=== PATIENT | female | born 1960 | race Caucasian/White ===

== ENCOUNTER 2025-04-03 17:03 | Emergency (ER) | payer MEDICARE, SELFPAY ==
[2025-04-03 17:08] VITALS: BP 166/82; PULSE 72; RESP 18; TEMP 36.7; O2SAT 100; BMI 28.0
--- NOTE | 2025-04-03 17:32 | XRR_ITS ---
PROCEDURE INFORMATION: Exam: XR Chest Exam date and time: 04/03/2025 5:38 PM Age: 65 years old Clinical indication: Pain; Chest pressure; Additional info: Chest pain TECHNIQUE: Imaging protocol: Radiologic exam of the chest. Views: 1 view. COMPARISON: No relevant prior studies available. FINDINGS: Lungs: Unremarkable. No consolidation. Pleural spaces: Unremarkable. No pleural effusion. No pneumothorax. Heart/Mediastinum: Unremarkable. No cardiomegaly. Bones/joints: Unremarkable. XR/XR chest 1V portable [id number] IMPRESSION: No acute findings.
--- NOTE | 2025-04-03 17:32 | ECG_ITS ---
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 Measurements Intervals [place] Rate: 75 P: 64 [place]: 141 QRS: 74 QRSD: 72 T: 45 QT: 357 QTc: 399 Interpretive Statements SINUS RHYTHM No previous ECG available for comparison Electronically Signed On 04-04-2025 14:33:36 CDT by Flaquito Oconnell M.D. [email or web address]
--- NOTE | 2025-04-03 17:34 | ED_ITS ---
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 This has been on and off for the last 2 months. This was in the central area of her chest, sharp, radiating to her right shoulder and feeling like a squeeze. Last p.m. she had the same pain, and it was radiating to her left shoulder. This occurred prior to arrival as well with the squeezing sensation/radiation to left shoulder. It is associated with shortness of breath. No diaphoresis, no nausea, no vomiting. No previous history of CAD. She is not chronically on aspirin. Risk factors are vaping. Unsure if she has had a cholecystectomy. No prearrival treatment. Primary care physician did place patient on PPI, and patient has EGD scheduled on 04/16. Associated symptoms: Reports dyspnea; Deny abdominal pain, fever(s), nausea, palpitations or vomiting Related Data Allergies Allergy/AdvReac Type Severity Reaction Status Date / Time codeine Allergy ALGY-Rash Verified 04/03/25 17:12 Penicillins Allergy ALGY-Rash Verified 04/03/25 17:12 Review of Systems General: Reports: 10 or more systems reviewed and unremarkable except in HPI and below Const: Denies: fever(s), chills, body aches or change in appetite Eyes: Denies: change in vision or blurry vision ENMT: Denies: throat pain or uvular edema Card: Reports: chest pain; Denies: palpitations Resp: Reports: dyspnea; Denies: productive cough, non-productive cough or wheezing GI: Denies: abdominal pain, nausea or vomiting : Denies: flank pain or difficulty voiding Musc: Denies: neck pain, back pain or joint pain Skin/Breast: Denies: rash or pruritus Neuro: Denies: headache(s) or numbness in extremities Psych: Denies: anxiety or depression Physical Exam Const: COMMON NORMALS: no acute distress, average body habitus, patient oriented x3, no limitations, healthy appearing, alert and well nourished EXAM LIMITATIONS: no altered mental status GENERAL APPEARANCE: cooperative, comfortable and well kempt ORIENTATION/CONSCIOUSNESS: Yes awake, Yes oriented to person, Yes oriented to place and Yes oriented to time HENMT: COMMON NORMALS: normocephalic, atraumatic, hearing grossly normal bilaterally and Normal external nose present HEAD & SCALP: normocephalic and atraumatic FACE & SINUS: normal facial exam NOSE: Normal external nose present and Normal nares present MOUTH: Normal oral and palatal mucosa present and lip normal; moist mucous membranes not abnormal THROAT: no uvular edema Eye: COMMON NORMALS: Equal, round and reactive pupils present and EOMs intact bilaterally GENERAL EYE: normal light reflex PUPIL: Yes Equal, round and reactive pupils present DIRECT OPHTHALMOSCOPY: Yes normal light reflex Neck/C-Spine: COMMON NORMALS: full ROM and no lymphadenopathy CERVICAL SPINE: Yes cervical ROM normal Lymph: LYMPHATIC: no lymphadenopathy noted Chest: COMMONS NORMALS: normal inspection of the chest and normal palpation of entire chest wall Resp: COMMON NORMALS: normal respiratory effort, No retractions and clear to auscultation bilaterally EFFORT & INSPECTION: Yes able to speak in complete sentences AUSCULTATION: clear to auscultation bilaterally Cardio: COMMON NORMALS: regular rhythm RHYTHM: regular rhythm and abnormal rhythm GI: COMMON NORMALS: Normal to inspection, nondistended, normoactive bowel sounds present and Soft to palpation INSPECTION: Yes normal to inspection PALPATION: Yes Soft to palpation : COMMON NORMALS: Yes no CVA tenderness BLADDER/KIDNEY EXAM: Yes no CVA tenderness Back/Pelvis: COMMON NORMALS: no CVA tenderness Neuro: COMMON NORMALS: patient oriented x3 SENSORIUM/ORIENTATION: Yes alert, Yes oriented to person, Yes oriented to place and Yes oriented to time Psych: COMMON NORMALS: speech normal APPEARANCE: Yes well kempt SPEECH: Yes normal speech Course Vital Signs: Vital signs: Vital Signs Temperature 98.1 F 04/03/25 17:08 Pulse Rate 72 04/03/25 17:08 Respiratory Rate 18 04/03/25 17:08 Blood Pressure 166/82 04/03/25 17:08 Pulse Oximetry 100 04/03/25 17:08 Oxygen Delivery Me thod Room Air 04/03/25 17:08 Discharge Plan Discharge Clinical Impression: Atypical chest pain Condition: Stable Print Language: Ukrainian Coding Level of Care Code ED Strap Cutter for Cuongg Nikki
[2025-04-03 17:44] LABS: Basophils # 0.1 10^3/uL (0.0-0.1); Basophils % 1.2 %; Eosinophils # 0.2 10^3/uL (0.0-0.8); Eosinophils % 2.7 %; Hematocrit 39.3 % (36-47); Lymphocytes # 2.5 10^3/uL (0.8-4.8); Lymphocytes % 27.8 %; Mean Corpuscular HGB Conc 33.3 g/dL (30-55); Mean Corpuscular Volume 93.1 fl (85-98); Mean Platelet Volume 10.4 fL (7.4-10.4); Monocytes # 0.6 10^3/uL (0.2-0.9); Monocytes % 7.2 %; Neutrophils # 5.35 10^3/uL (1.8-7.7); Neutrophils % 60.8 %; Nucleated Red Blood Cells % 0 %; Platelet Count 391 10^3/cmm (157-399); Red Blood Count 4.22 10^6/uL (3.85-5.65); White Blood Count 8.81 10^3/uL (3.29-11.43)
--- NOTE | 2025-04-03 17:44 | ED_ITS ---
Documented by User: Tung Krueger DO 04/04/25 07:21 HPI - Chest Pain 2 General: Chief Complaint: Chest Pain Stated Complaint: left side center chest to back pain Time Seen by Provider: 04/03/25 17:19 History of Present Illness: 65-year-old female presents emergency ro om complaining left-sided chest pain that radiates into her back. Is been intermittent has been going on for 1 to 2 months she has had extensive workup prior including cardiac. She has also had a GI evaluation she is scheduled to have a endoscopy. States last night he began hurting much more is very positional is reproducible with movement in her upper back in the region of the scapula. He has no known coronary disease no history of any arrhythmias no previous DVTs or PEs. No hemoptysis no productive cough no associated rash no vomiting. She states is better when she is up and moving around and worse when she lays down. Not exacerbated by exertion. It is uncomfortable for her to take a deep breath. Associated symptoms: Deny abdominal pain, dyspnea or fever(s) Related Data Allergies Allergy/AdvReac Type Severity Reaction Status Date / Time codeine Allergy ALGY-Rash Verified 04/03/25 17:12 Penicillins Allergy ALGY-Rash Verified 04/03/25 17:12 Review of Systems 2 Const: Denies: fever(s) or chills Card: Reports: chest pain Resp: Denies: dyspnea GI: Denies: abdominal pain : Denies: dysuria, urinary frequency or urinary urgency Musc: Reports: back pain; Denies: neck pain Skin/Breast: Denies: rash Physical Exam 2 Const: GENERAL APPEARANCE: cooperative ORIENTATION/CONSCIOUSNESS: Yes awake, Yes oriented to person, Yes oriented to place and Yes oriented to time HENMT: COMMON NORMALS: normocephalic, atraumatic and hearing grossly normal bilaterally HEAD & SCALP: normocephalic and atraumatic Resp: COMMON NORMALS: normal respiratory effort, No retractions, No use of accessory muscles and clear to auscultation bilaterally AUSCULTATION: clear to auscultation bilaterally Cardio: COMMON NORMALS: regular rate, regular rhythm and No murmurs present (Cardio) RATE: regular rate RHYTHM: regular rhythm GI: COMMON NORMALS: Soft to palpation and No hepatosplenomegaly present A USCULTATION: Yes normoactive bowel sounds PALPATION: Yes Soft to palpation, No Tenderness to palpation present (GI), No Guarding due to palpation present (GI) and Yes No hepatosplenomegaly present Extremity: COMMON NORMALS: normal to inspection, capillary refill normal, no clubbing, cyanosis or edema, no calf tenderness and no pedal edema Neuro: SENSORIUM/ORIENTATION: Yes oriented to person, Yes oriented to place and Yes oriented to time Skin: COMMON NORMALS: no rashes or lesions noted GENERAL SKIN EXAM: no rashes or lesions noted Course 2 Vital Signs: Vital signs: Vital Signs Temperature 98.1 F 04/03/25 17:08 Pulse Rate 61 04/03/25 20:15 Respiratory Rate 18 04/03/25 20:15 Blood Pressure 141/67 04/03/25 20:15 Pulse Oximetry 97 04/03/25 19:03 Oxygen Delivery Me thod Room Air 04/03/25 17:57 MDM - Chest Pain Medical Decision Making Patient presents emergency room with complaint of chest pain radiating to her back. She seen her primary care doctor they worked up cardiac and then began to workup GI. On exam here she is having severe pain her pain is highly suggestive of musculoskeletal pain. Particularly in level thoracic spine. CT pending of the thoracic spine. Care signed out to Dr. Glynn at change of shift. See final notes for diagnosis and disposition. I assumed care of this patient from the dayshift physician with instructions to follow-up on several diagnostic studies and reevaluate her. The patient reports that she is feeling better after resting here in the emergency department the patient's last electrocardiogram dated April 03 at 1929 revealed a sinus bradycardia. The patient also had a CT scan of the thoracic spine that revealed multiple thoracic compression fractures the patient does report that she is osteoporotic. I have recommended further workup and evaluation of these compression fractures. Patient will be given a prescription for #20 Percocet and counseled on the daily maximum limit of Tylenol she has been taking a large amount of Tylenol. Lab Data 04/03/25 17:38 04/03/25 17:38 Radiology Impressions Chest X-Ray 04/03/25 17:32 IMPRESSION: No acute findings. Thoracic Spine CT 04/03/25 17:48 IMPRESSION: 1. Severe compression deformity of the T7 and T8 vertebral bodies and mild compression deformity of the T6 vertebral body. 2. Mrxy-jz-[id number] compression deformity of the T9 and T11 vertebral bodies with a proximally 7 mm of vertebral body height loss. Laboratory Results WBC 8.81 10^3/uL (3.29-11.43) 04/03/25 17:38 RBC 4.22 10^6/uL (3.85-5.65) 04/03/25 17:38 Hgb 13.10 g/dL (11.27-16.99) 04/03/25 17:38 Hct 39.3 % (36-47) 04/03/25 17:38 MCV 93.1 fl (85-98) 04/03/25 17:38 MCH 31.0 pg (27-33) 04/03/25 17:38 MCHC 33.3 g/dL (30-55) 04/03/25 17:38 RDW 14.0 % (12.1-15.1) 04/03/25 17:38 Plt Count 391 10^3/cmm (157-399) 04/03/25 17:38 MPV 10.4 fL (7.4-10.4) 04/03/25 17:38 Neut % (Auto) 60.8 % 04/03/25 17:38 Lymph % (Auto) 27.8 % 04/03/25 17:38 [place] % (Auto) 7.2 % 04/03/25 17:38 Eos % (Auto) 2.7 % 04/03/25 17:38 Baso % (Auto) 1.2 % 04/03/25 17:38 Neut # (Auto) 5.35 10^3/uL (1.8-7.7) 04/03/25 17:38 Lymph # (Auto) 2.5 10^3/uL (0.8-4.8) 04/03/25 17:38 [place] # (Auto) 0.6 10^3/uL (0.2-0.9) 04/03/25 17:38 Eos # (Auto) 0.2 10^3/uL (0.0-0.8) 04/03/25 17:38 Baso # (Auto) 0.1 10^3/uL (0.0-0.1) 04/03/25 17:38 Nucleated RBC % (auto) 0 % 04/03/25 17:38 Nucleated RBCs # 0.0 /100WBC 04/03/25 17:38 D-Dimer <= 0.27 ug/mLFEU (0-0.59) 04/03/25 17:38 Sodium 140 mmol/L (136-145) 04/03/25 17:38 Potassium 4.6 mmol/L (3.5-5.1) 04/03/25 17:38 Chloride 105 mmol/L (98-107) 04/03/25 17:38 Carbon Dioxide 19 mmol/L (22-29) L 04/03/25 17:38 Anion Gap 20.6 (5-19) H 04/03/25 17:38 BUN 14 mg/dL (8-23) 04/03/25 17:38 Creatinine 0.7 mg/dL (0.5-0.9) 04/03/25 17:38 GFR Calculation 84.0 mL/min (90-130) L 04/03/25 17:38 Glucose 96 mg/dL (65-115) 04/03/25 17:38 Calculated Osmolality 290 mOsm/kg (285-295) 04/03/25 17:38 Calcium 9.3 mg/dL (8.5-10.5) 04/03/25 17:38 Total Bilirubin 0.2 mg/dL (0.15-1.2) 04/03/25 17:38 AST 35 U/L (0-32) H 04/03/25 17:38 ALT 44 U/L (0-33) H 04/03/25 17:38 Alkaline Phosphatase 86 U/L (35-105) 04/03/25 17:38 Troponin T Baseline < 6 ng/L (0-10) 04/03/25 17:38 Troponin T 120 Minute < 6.0 ng/L (0-10) 04/03/25 19:39 Delta Troponin T 0 ABS# (0-10) 04/03/25 19:39 NT-Pro-B Natriuret Pep 113 pg/mL (0-125) 04/03/25 17:38 Total Protein 7.1 g/dL (6.6-8.7) 04/03/25 17:38 Albumin 4.6 g/dL (3.5-5.2) 04/03/25 17:38 Globulin 2.5 g/dL (1.3-4.6) 04/03/25 17:38 Lipase 33 U/L (13-60) 04/03/25 17:38 Discharge Plan Discharge Patient Disposition: Home Clinical Impression: Atypical chest pain, Compression fracture, Osteoporosis Condition: Stable Discharge Orders: Discharge ED (Routine); Ordered 04/03/25 Ordered By: Anthony Glynn Discharge Diet: Advance as tolerated Discharge Activity: Limit activity as instructed Patient Instructions: Opioid Safety, Pain Management Activity Restrictions/Additional Instructions: 1. Take prescription as directed it does have Tylenol in it do not exceed over 3000 mg of Tylenol from all sources. 2. Patient needs follow-up with primary care for further workup and evaluation of her multiple thoracic compression fractures 3. Return for intractable pain or new or different symptoms including fever and vomiting. Print Language: [place] Arabian Coding Level of Care Code ED Professor Of Literature for Chg Fwd Documented by User: Anthony Glynn DO 04/03/25 20:53 HPI - Chest Pain 2 General: Chief Complaint: Chest Pain Stated Complaint: left side center chest to back pain Time Seen by Provider: 04/03/25 17:19 Related Data Allergies Allergy/AdvReac Type Severity Reaction Status Date / Time codeine Allergy ALGY-Rash Verified 04/03/25 17:12 Penicillins Allergy ALGY-Rash Verified 04/03/25 17:12 Course 2 Vital Signs: Vital signs: Vital Signs Temperature 98.1 F 04/03/25 17:08 Pulse Rate 61 04/03/25 20:15 Respiratory Rate 18 04/03/25 20:15 Blood Pressure 141/67 04/03/25 20:15 Pulse Oximetry 97 04/03/25 19:03 Oxygen Delivery Me thod Room Air 04/03/25 17:57 MDM - Chest Pain Medical Decision Making I assumed care of this patient from the dayshift physician with instructions to follow-up on several diagnostic studies and reevaluate her. The patient reports that she is feeling better after resting here in the emergency department the patient's last electrocardiogram dated April 03 at 1929 revealed a sinus bradycardia. The patient also had a CT scan of the thoracic spine that revealed multiple thoracic compression fractures the patient does report that she is osteoporotic. I have recommended further workup and evaluation of these compression fractures. Patient will be given a prescription for #20 Percocet and counseled on the daily maximum limit of Tylenol she has been taking a large amount of Tylenol. Lab Data 04/03/25 17:38 04/03/25 17:38 Radiology Impressions Chest X-Ray 04/03/25 17:32 IMPRESSION: No acute findings. Thoracic Spine CT 04/03/25 17:48 IMPRESSION: 1. Severe compression deformity of the T7 and T8 vertebral bodies and mild compression deformity of the T6 vertebral body. 2. Ftqi-vp-ocrjoyjo compression deformity of the T9 and T11 vertebral bodies with a proximally 7 mm of vertebral body height loss. Laboratory Results WBC 8.81 10^3/uL (3.29-11.43) 04/03/25 17:38 RBC 4.22 10^6/uL (3.85-5.65) 04/03/25 17:38 Hgb 13.10 g/dL (11.27-16.99) 04/03/25 17:38 Hct 39.3 % (36-47) 04/03/25 17:38 MCV 93.1 fl (85-98) 04/03/25 17:38 MCH 31.0 pg (27-33) 04/03/25 17:38 MCHC 33.3 g/dL (30-55) 04/03/25 17:38 RDW 14.0 % (12.1-15.1) 04/03/25 17:38 Plt Count 391 10^3/cmm (157-399) 04/03/25 17:38 MPV 10.4 fL (7.4-10.4) 04/03/25 17:38 Neut % (Auto) 60.8 % 04/03/25 17:38 Lymph % (Auto) 27.8 % 04/03/25 17:38 [place] % (Auto) 7.2 % 04/03/25 17:38 Eos % (Auto) 2.7 % 04/03/25 17:38 Baso % (Auto) 1.2 % 04/03/25 17:38 Neut # (Auto) 5.35 10^3/uL (1.8-7.7) 04/03/25 17:38 Lymph # (Auto) 2.5 10^3/uL (0.8-4.8) 04/03/25 17:38 [place] # (Auto) 0.6 10^3/uL (0.2-0.9) 04/03/25 17:38 Eos # (Auto) 0.2 10^3/uL (0.0-0.8) 04/03/25 17:38 Baso # (Auto) 0.1 10^3/uL (0.0-0.1) 04/03/25 17:38 Nucleated RBC % (auto) 0 % 04/03/25 17:38 Nucleated RBCs # 0.0 /100WBC 04/03/25 17:38 D-Dimer <= 0.27 ug/mLFEU (0-0.59) 04/03/25 17:38 Sodium 140 mmol/L (136-145) 04/03/25 17:38 Potassium 4.6 mmol/L (3.5-5.1) 04/03/25 17:38 Chloride 105 mmol/L (98-107) 04/03/25 17:38 Carbon Dioxide 19 mmol/L (22-29) L 04/03/25 17:38 Anion Gap 20.6 (5-19) H 04/03/25 17:38 BUN 14 mg/dL (8-23) 04/03/25 17:38 Creatinine 0.7 mg/dL (0.5-0.9) 04/03/25 17:38 GFR Calculation 84.0 mL/min (90-130) L 04/03/25 17:38 Glucose 96 mg/dL (65-115) 04/03/25 17:38 Calculated Osmolality 290 mOsm/kg (285-295) 04/03/25 17:38 Calcium 9.3 mg/dL (8.5-10.5) 04/03/25 17:38 Total Bilirubin 0.2 mg/dL (0.15-1.2) 04/03/25 17:38 AST 35 U/L (0-32) H 04/03/25 17:38 ALT 44 U/L (0-33) H 04/03/25 17:38 Alkaline Phosphatase 86 U/L (35-105) 04/03/25 17:38 Troponin T Baseline < 6 ng/L (0-10) 04/03/25 17:38 Troponin T 120 Minute < 6.0 ng/L (0-10) 04/03/25 19:39 Delta Troponin T 0 ABS# (0-10) 04/03/25 19:39 NT-Pro-B Natriuret Pep 113 pg/mL (0-125) 04/03/25 17:38 Total Protein 7.1 g/dL (6.6-8.7) 04/03/25 17:38 Albumin 4.6 g/dL (3.5-5.2) 04/03/25 17:38 Globulin 2.5 g/dL (1.3-4.6) 04/03/25 17:38 Lipase 33 U/L (13-60) 04/03/25 17:38 All radiology interpretation(s) finalized by discharge Discharge Plan Discharge Patient Disposition: Home Clinical Impression: Atypical chest pain, Compression fracture, Osteoporosis Condition: Stable Discharge Orders: Discharge ED (Routine); Ordered 04/03/25 Ordered By: Anthony Glynn Discharge Diet: Advance as tolerated Discharge Activity: Limit activity as instructed Patient Instructions: Opioid Safety, Pain Management Activity Restrictions/Additional Instructions: 1. Take prescription as directed it does have Tylenol in it do not exceed over 3000 mg of Tylenol from all sources. 2. Patient needs follow-up with primary care for further workup and evaluation of her multiple thoracic compression fractures 3. Return for intractable pain or new or different symptoms including fever and vomiting. Print Language: [place] Arabian Coding Level of Care Code ED Professor Of Literature for Randal Jordan
--- NOTE | 2025-04-03 17:48 | CTR_ITS ---
PROCEDURE INFORMATION: Exam: CT Thoracic Spine Without Contrast Exam date and time: 04/03/2025 6:06 PM Age: 65 years old Clinical indication: Pain in thoracic spine; C/O upper back pain with spasms. ; Additional info: Thoracic spine pain TECHNIQUE: Imaging protocol: Computed tomography of the thoracic spine without contrast. Radiation optimization: All CT scans at this facility use at least one of these dose optimization techniques: automated exposure control; mA and/or kV adjustment per patient size (includes targeted exams where dose is matched to clinical indication); or iterative reconstruction. COMPARISON: CR (CHEST, ) 04/03/2025 5:38 PM RADIATION DOSE METRICS: Total DLP (mGy-cm): 626.41 FINDINGS: Bones/joints: Severe compression deformity of the T7 and T8 vertebral bodies and mild compression deformity of the T6 vertebral body. Eyhq-pa-gnnukmsa compression deformity of the T9 and T11 vertebral bodies with a proximally 7 mm of vertebral body height loss. Soft tissues: Unremarkable. CT/CT thoracic spin wo con* [id number] IMPRESSION: 1. Severe compression deformity of the T7 and T8 vertebral bodies and mild compression deformity of the T6 vertebral body. 2. Awrh-os-tgmjktww compression deformity of the T9 and T11 vertebral bodies with a proximally 7 mm of vertebral body height loss.
[2025-04-03] MEDS: ketorolac 30 mg/mL INJ IVP (17:52)
[2025-04-03 17:54] VITALS: RESP 18; O2SAT 99
[2025-04-03] MEDS: morphine 4 mg/mL SDV 1 mL IVP (17:54)
[2025-04-03] MEDS: aspirin 81 mg Chew Tablet 324 MG PO (17:56)
[2025-04-03 17:57] VITALS: BP 172/116; PULSE 85; RESP 18; O2SAT 97
[2025-04-03 18:00] LABS: D Dimer <= 0.27 ug/mLFEU (0-0.59)
[2025-04-03 18:05] LABS: Troponin(5th) Baseline < 6 ng/L (0-10)
[2025-04-03 18:13] LABS: Alanine Aminotransferase 44 U/L (0-33); Albumin Level 4.6 g/dL (3.5-5.2); Alkaline Phosphatase 86 U/L (35-105); Anion Gap 20.6 (5-19); Aspartate Amino Transferase 35 U/L (0-32); Blood Urea Nitrogen 14 mg/dL (8-23); Calcium 9.3 mg/dL (8.5-10.5); Carbon Dioxide 19 mmol/L (22-29); Chloride 105 mmol/L (98-107); Creatinine Clr Calc Pharmacy 76.8511; Globulin 2.5 g/dL (1.3-4.6); Glucose 96 mg/dL (65-115); Lipase 33 U/L (13-60); NT Pro B Type Natriuretic Pept 113 pg/mL (0-125); Osmolality Calculated 290 mOsm/kg (285-295); Potassium 4.6 mmol/L (3.5-5.1); Sodium 140 mmol/L (136-145); Total Bilirubin 0.2 mg/dL (0.15-1.2); Total Protein 7.1 g/dL (6.6-8.7)
[2025-04-03 19:03] VITALS: BP 150/90; PULSE 69; RESP 21; O2SAT 97
--- NOTE | 2025-04-03 19:32 | ECG_ITS ---
[facility] Test Date: 2025-04-03 Pat Name: Daisy Ramírez Department: Room: Gender: Female Keno Attendant: : 1960 Requested By: Jeana Garcia Order Number: [id number] Celi MD: Flaquito Oconnell M.D. Measurements Intervals [place] Rate: 58 P: 62 HI: 136 QRS: 70 QRSD: 76 T: 44 QT: 392 QTc: 387 Interpretive Statements SINUS BRADYCARDIA Non diagnostic T wave changes Compared to ECG 04/03/2025 17:07:25 Sinus rhythm no longer present Electronically Signed On 04-04-2025 14:37:34 CDT by Flaquito Oconnell M.D. [email or web address]
[2025-04-03 20:12] LABS: Troponin 5 2HR < 6.0 ng/L (0-10); Troponin 5 2HR Delta 0 ABS# (0-10)
[2025-04-03 20:15] VITALS: BP 141/67; PULSE 61; RESP 18
== END 2025-04-03 21:14 | disposition home or self-care (01) ==
PROVIDERS: Physician Assistant; Emergency Provider Family Medicine
DX: R07.89 Other chest pain (principal); S22.060A Wedge compression fracture of T7-T8 vertebra, initial encounter for closed fracture; S22.070A Wedge compression fracture of T9-T10 vertebra, initial encounter for closed fracture; S22.080A Wedge compression fracture of T11-T12 vertebra, initial encounter for closed fracture; M81.0 Age-related osteoporosis without current pathological fracture; X58.XXXA Exposure to other specified factors, initial encounter
CPT/HCPCS: 36415; 71045; 72128; 80053; 83690; 83880; 84484; 85025; 85378; 93005; 96374; 96375; 99285; J1885; J2270; J9999